=== PATIENT | male | born 1955 | race African-American/Black ===

== ENCOUNTER 2023-08-11 15:19 | Inpatient (IN) | payer OTHER ==
[2023-08-11 17:22] VITALS: BMI 17.4
[2023-08-11] MEDS ORDERED: BENZOCAINE/MENTHOL (CHLORASEPTIC ) LOZENGE MM PRN (20:34)
[2023-08-11] MEDS ORDERED: NALOXONE HCL (KLOXXADO) 8 MG SPRAY NS PRN (20:34)
[2023-08-11] MEDS ORDERED: POLYETHYLENE GLYCOL (HEALTHYLAX) 3350 17 GM PACKET PO PRN (20:34)
[2023-08-11] MEDS ORDERED: NICOTINE POLACRILEX 2 MG LOZENGE BC PRN (20:34)
[2023-08-11] MEDS ORDERED: IBUPROFEN 400 MG TABLET (FP) PO PRN (20:34)
[2023-08-11] MEDS ORDERED: NALOXONE HCL 0.4 MG/ML VIAL IM PRN (20:34)
[2023-08-11] MEDS ORDERED: DICYCLOMINE HCL 10 MG CAPSULE PO PRN (20:34)
[2023-08-11] MEDS ORDERED: BISMUTH SUBSALICYLATE 524 MG/30 ML PO PRN (20:34)
[2023-08-11] MEDS ORDERED: MAGNESIUM HYDROX 2400MG/30ML ORAL SUSPENSION 30 ML CUP PO PRN (20:34)
[2023-08-11] MEDS ORDERED: BENZONATATE 200 MG CAPSULE PO PRN (20:34)
[2023-08-11] MEDS ORDERED: guaiFENesin 600 MG TABLET.ER (FP) PO PRN (20:34)
[2023-08-11] MEDS ORDERED: MAG HYDROX/AL HYDROX/SIMETH 30 ML UNIT-DOSE CUP PO PRN (20:34)
[2023-08-11] MEDS ORDERED: LOPERAMIDE HCL 2 MG CAPSULE PO PRN (20:34)
[2023-08-11] MEDS: ACETAMINOPHEN 325 MG TABLET (FP) PO PRN (21:44)
[2023-08-11] MEDS: THIAMINE HCL 100 MG TABLET (FP) PO SCH (21:44)
[2023-08-11] MEDS: MELATONIN 5 MG TABLETS PO SCH (21:49)
[2023-08-11] MEDS: diazePAM 5 MG TABLET PO SCH (22:21)
[2023-08-12] MEDS: PRENATAL VITAMINS W/ FOLIC ACID TABLET (FP) PO SCH (10:50)
[2023-08-12] MEDS: NICOTINE 14 MG/24 HOURS TOPICAL PATCH TD SCH (10:50)
[2023-08-12 11:52] LABS: HEMATOCRIT 28.2 % (35.4-49); HEMOGLOBIN 9.4 GM/dL (11.7-16.9); MCH 30.5 pg (25.7-33.7); MCHC 33.2 g/dl (32.0-35.9); MEAN CELL VOLUME 91.8 fl (80-96); MEAN PLT VOLUME 9.2 fl (7.5-11.1); PLATELET COUNT 126 10^3/uL (134-434); RBC 3.07 M/mm3 (4.00-5.60); RDW 12.6 % (11.9-15.9); WHITE BLOOD COUNT 4.7 K/mm3 (4.0-10.0)
[2023-08-12] MEDS: methaDONE 80 MG, methaDONE 20 MG PO ONE (11:59)
[2023-08-12 12:19] LABS: CHLORIDE 107 mmol/L (98-107); POTASSIUM 4.2 mmol/L (3.5-5.1); SODIUM 140 mmol/L (136-145)
[2023-08-12 12:27] LABS: CREATININE 1.1 mg/dL (0.55-1.3); SGPT/ALT 12 U/L (13-61)
[2023-08-12 12:28] LABS: BILIRUBIN,TOTAL 0.6 mg/dL (0.2-1); BLOOD UREA NITROGEN 22.1 mg/dL (7-18); GLUCOSE,RANDOM 80 mg/dL (74-106); TOT PROT 5.9 g/dl (6.4-8.2)
[2023-08-12 12:29] LABS: ALBUMIN 3.3 g/dl (3.4-5.0); ANION GAP 1 mmol/L (4-13); CO2 32 mmol/L (21-32)
[2023-08-12 12:30] LABS: ALK PHOS 52 U/L (45-117); CALCIUM 8.9 mg/dL (8.5-10.1)
[2023-08-12 12:32] LABS: SGOT/AST 14 U/L (15-37)
[2023-08-12 15:10] LABS: HIV INTERPRETATION NEGATIVE (NEGATIVE)
[2023-08-13] MEDS: methaDONE 80 MG, methaDONE 20 MG PO SCH (07:35)
[2023-08-13] MEDS: diazePAM 5 MG TABLET PO SCH (07:35)
[2023-08-13] MEDS ORDERED: methaDONE HCL 10 MG TABLET PO ONE (09:49)
[2023-08-13] MEDS ORDERED: methaDONE HCL 10 MG TABLET PO SCH (10:00)
[2023-08-13] MEDS: methaDONE 80 MG, methaDONE 20 MG PO ONE (10:02)
[2023-08-13] MEDS: IBUPROFEN 600 MG TABLET (FP) PO PRN (10:03)
[2023-08-13] MEDS: diazePAM 5 MG TABLET PO PRN (10:07)
[2023-08-14] MEDS: diazePAM 5 MG TABLET PO SCH (05:31)
[2023-08-14] MEDS: ONDANSETRON *ODT* 4 MG TABLET SL PRN (10:21)
[2023-08-14 21:21] VITALS: TEMP 97.8
[2023-08-15] MEDS: diazePAM 5 MG TABLET PO ONE (05:12)
[2023-08-15 09:43] VITALS: BP 100/62; PULSE 60; RESP 17
== END 2023-08-15 10:20 | disposition other institution (70) | DRG 897 ==
LOC: YASAS 15:19 → Y3N 20:47
PROVIDERS: ADMIT Allergy & Immunology; ATTEND Surgery
PROC: HZ2ZZZZ Detoxification Services for Substance Abuse Treatment (ICD-10-PCS; principal; 2023-08-11)
DX: F10.230 Alcohol dependence with withdrawal, uncomplicated (principal); F13.20 Sedative, hypnotic or anxiolytic dependence, uncomplicated; F11.20 Opioid dependence, uncomplicated; F17.210 Nicotine dependence, cigarettes, uncomplicated; Z86.19 Personal history of other infectious and parasitic diseases; Z28.310 Unvaccinated for COVID-19; Z28.9 Immunization not carried out for unspecified reason
CPT/HCPCS: 36415; 80053; 80307; 85027; 86780; 87389; 93005; 93010; Q0162